=== PATIENT | female | born 1960 | race Caucasian/White ===

== ENCOUNTER 2020-03-20 17:25 | Observation (INO) | payer OTHER ==
--- NOTE | 2020-03-20 17:56 | PDOC ---
History of Present Illness - General Chief Complaint: Chest Pain Stated Complaint: CHEST PAIN Time Seen by Provider: 03/20/20 17:55 - History of Present Illness Initial Comments: 03/20/20 17:56 59 year old female with past medical hx of HTN and CVA with no residual deficits Past History - Medical History Allergies/Adverse Reactions: Allergies Allergy/AdvReac Type Severity Reaction Status Date / Time No Known Allergies Allergy Verified 03/20/20 17:47 Home Medications: Ambulatory Orders Acetaminophen W/ Codeine #3 [Tylenol # 3 -] 1 tab PO Q4H #10 tablet 12/31/13 Naproxen [Naprosyn -] 500 mg PO BID #14 tablet 09/02/14 Oxycodone HCl/Acetaminophen [Percocet 5-325 mg Tablet] 1 - 2 tab PO Q4H PRN #20 tablet 07/10/15 CVA: Yes COPD: No HTN: Yes - Reproductive History Is Patient Now?: No - Immunization History Immunization Up to Date: Yes - Psycho-Social/Smoking History Smoking Status: No Smoking History: Never smoked Have you smoked in the past 12 months: No Number of Cigarettes Smoked Daily: 0 Information on smoking cessation initiated: No - Substance Abuse Hx (Audit-C & DAST Scrn) How often the patient has a drink containing alcohol: Never Score: In Men: 4 or > Positive; In Women: 3 or > Positive: 0 Screen Result (Pos requires Nsg. Audit-10AR): Negative In the last yr the pt used illegal drug/Rx for NonMed reason: No Score: Yes response is considered Positive: 0 Screen Result (Positive result requires Nsg. DAST-10): Negative *Physical Exam - Vital Signs Last Vital Signs Temp Pulse Resp BP Pulse Ox 98.2 F 80 18 167/110 H 100 03/20/20 17:44 03/20/20 17:44 03/20/20 17:44 03/20/20 17:44 03/20/20 17:44 Discharge - Follow up/Referral Referrals: Zack Atkins [Primary Care Provider] - - Patient Discharge Instructions - Post Discharge Activity
--- NOTE | 2020-03-20 18:47 | PDOC ---
History of Present Illness - General Chief Complaint: Chest Pain Stated Complaint: CHEST PAIN Time Seen by Provider: 03/20/20 17:55 History Source: Patient Exam Limitations: Language Barrier (slovak) - History of Present Illness Initial Comments: 03/20/20 20:38 HPI: This is a 59 y/o female with a PMH of HTN (non-compliant with medications), CVA presenting to the ED because of 5-6 days of central non-radiating chest pressure that began while she was walking. She also has accompanying weakness, diaphoresis, nausea, and the pain is worse with activity. She reports that its worse with movement, but denies that its pleuritic. Denies fever, chills, cough, shortness of breath. ROS: GENERAL/CONSTITUTIONAL: No fever/chills. Yes weakness. HEAD, EYES, EARS, NOSE AND THROAT: No change in vision. No ear pain or discharge. No sore throat. CARDIOVASCULAR: Yes chest pain. No shortness of breath. RESPIRATORY: No cough, wheezing, or hemoptysis. GASTROINTESTINAL: Yes nausea. No vomiting, diarrhea or constipation. GENITOURINARY: No dysuria, frequency, or change in urination. MUSCULOSKELETAL: No joint or muscle swelling or pain. No neck or back pain. NEUROLOGIC: Yes headache. No vertigo, loss of consciousness, or change in stren gth/sensation. HEMATOLOGIC/LYMPHATIC: No anemia, easy bleeding, or history of blood clots. ALLERGIC/IMMUNOLOGIC: No hives or skin allergy. PMH: CVA, HTN Social Hx: Denied tobacco and etoh Meds: Denied Allergies: KNDA PE: GENERAL: Awake, alert, and fully oriented, in no acute distress. Romanian speaking. Laying in bed with daughter in room. HEAD: No signs of trauma EYES: PERRLA, EOMI, sclera anicteric, conjunctiva clear NECK: Normal ROM, supple, no lymphadenopathy, JVD, or masses LUNGS: Breath sounds equal, clear to auscultation bilaterally. No wheezes, and no crackles HEART: Regular rate and rhythm, normal S1 and S2, no murmurs, rubs or gallops ABDOMEN: Soft, nontender, normoactive bowel sounds. No guarding, no rebound. No masses EXTREMITIES: Normal range of motion, no edema. No clubbing or cyanosis. No cords, erythema, or tenderness NEUROLOGICAL: Cranial nerves II through XII grossly intact. Normal speech, normal gait MDM: This is a 59 y/o female with a PMH of HTN (non-compliant with medications), CVA presenting to the ED because of 5-6 days of central non-radiating chest pressure that began while she was walking. r/o ACS - past hx CVA - concern for ACS - CXR, EKG - CBC, CMP, Cardiac panel - ASA and reglan 03/20/20 21:04 - CXR clear - negative trop - tele obs 03/20/20 20:54 - blogged symphony 03/20/20 21:56 - Admitted Past History - Medical History Allergies/Adverse Reactions: Allergies Allergy/AdvReac Type Severity Reaction Status Date / Time No Known Allergies Allergy Verified 03/20/20 17:47 Home Medications: Ambulatory Orders NK [No Known Home Medication] 03/20/20 CVA: Yes COPD: No HTN: Yes - Reproductive History Is Patient Now?: No - Immunization History Immunization Up to Date: Yes - Psycho-Social/Smoking History Smoking Status: No Smoking History: Never smoked Have you smoked in the past 12 months: No Number of Cigarettes Smoked Daily: 0 Information on smoking cessation initiated: No - Substance Abuse Hx (Audit-C & DAST Scrn) How often the patient has a drink containing alcohol: Never Score: In Men: 4 or > Positive; In Women: 3 or > Positive: 0 Screen Result (Pos requires Nsg. Audit-10AR): Negative In the last yr the pt used illegal drug/Rx for NonMed reason: No Score: Yes response is considered Positive: 0 Screen Result (Positive result requires Nsg. DAST-10): Negative *Physical Exam - Vital Signs Last Vital Signs Temp Pulse Resp BP Pulse Ox 98.2 F 80 18 167/110 H 100 03/20/20 17:44 03/20/20 17:44 03/20/20 17:44 03/20/20 17:44 03/20/20 17:44 Heart Score/ECG Review - History History: Slightly suspicious - Electrocardiogram EKG: Non specific repolarization disturbance - Age Age: 45-65 - Risk Factors Risk Factors Heart Score: Yes Hx Hypercholesterolemia, Yes Hx Hypertension, Yes Hx Diabetes Based on the list above the patient has:: 1-2 risk factors - Troponin Troponin: </= normal limit - Score Heart Score - Total: 3 - ECG Intrepretation Comment:: 03/20/20 21:[address] elevations or T wave inversions ED Treatment Course - LABORATORY CBC & Chemistry Diagram: 03/21/20 06:00 03/21/20 06:00 Discharge - Discharge Information Problems reviewed: Yes Clinical Impression/Diagnosis: Chest pain Qualifiers: Chest pain type: unspecified Qualified Code(s): R07.9 - Chest pain, unspecified Headache Qualifiers: Headache type: unspecified Headache chronicity pattern: acute headache In tractability: not intractable Qualified Code(s): R51 - Headache Condition: Fair - Admission Yes - Follow up/Referral - Patient Discharge Instructions - Post Discharge Activity
[2020-03-20] MEDS ORDERED: ACETAMINOPHEN 1000 MG/100 ML VIAL (NON FORMULARY) IVPB ONE (18:51)
[2020-03-20] MEDS ORDERED: ASPIRIN 81 MG CHEWABLE TABLETS PO ONE (18:52)
[2020-03-20] MEDS ORDERED: ACETAMINOPHEN INJECTION 100 ML IVPB ONE (18:59)
[2020-03-20] MEDS ORDERED: ASPIRIN 81 MG CHEWABLE TABLETS ONE (18:59)
[2020-03-20 19:24] LABS: BASO % 1.1 % (0-2.0); EOS % 4.2 % (0-4.5); HEMATOCRIT 41.9 % (32.4-45.2); HEMOGLOBIN 13.8 GM/dL (10.7-15.3); LYMPH % 29.7 % (8-40); MCH 30.4 pg (25.7-33.7); MCHC 32.8 g/dl (32.0-36.0); MEAN CELL VOLUME 92.6 fl (80-96); MEAN PLT VOLUME 9.2 fl (7.5-11.1); MONO % 8.4 % (3.8-10.2); NEUT % 56.6 % (42.8-82.8); PLATELET COUNT 215 K/MM3 (134-434); RBC 4.52 M/mm3 (3.60-5.2); RDW 14.1 % (11.6-15.6)
[2020-03-20 19:35] LABS: INR 0.89 (0.83-1.09); PROTHROMBIN TIME (PATIENT) 10.5 SEC (9.7-13.0)
[2020-03-20 19:38] LABS: ACTIVATED PTT 27.1 SECONDS (25.2-36.5)
[2020-03-20 19:52] LABS: ALBUMIN 3.6 g/dl (3.4-5.0); ALK PHOS 87 U/L (45-117); ANION GAP 8 MMOL/L (8-16); BILIRUBIN,TOTAL 0.4 mg/dL (0.2-1); BLOOD UREA NITROGEN 20.1 mg/dL (7-18); CALCIUM 8.8 mg/dL (8.5-10.1); CHLORIDE 105 mmol/L (98-107); CO2 29 mmol/L (21-32); CREATININE 1.1 mg/dL (0.55-1.3); GLUCOSE,RANDOM 90 mg/dL (74-106); POTASSIUM 3.6 mmol/L (3.5-5.1); SGOT/AST 28 U/L (15-37); SGPT/ALT 54 U/L (13-61); SODIUM 142 mmol/L (136-145)
--- NOTE | 2020-03-20 19:54 | PDOC ---
Documentation entered by Dang Trinidad SCRIBE, acting as scribe for Mariah Hernandez DO. Mariah Hernandez DO: This documentation has been prepared by the Vivi rodriguez Sydney, SCRIBE, under my direction and personally reviewed by me in its entirety. I confirm that the documentation accurately reflects all work, treatment, procedures, and medical decision making performed by me. Attending Attestation - Resident Resident Name: Karla Bautista - ED Attending Attestation I have performed the following: I have examined & evaluated the patient, The case was reviewed & discussed with the resident, I agree w/resident's findings & plan, Exceptions are as noted - HPI HPI: 03/20/20 19:36 Patient is a 59 year old female with a significant past medical history of HTN, CVA (over 10 years ago) who presents to the ED with 5-6 days of left-sided chest pressure. As per patient, her constant 6/10 discomfort began while she was walking, fluctuates with intensity, and is exacerbated by walking and deep inspirations. Patient endorses associated nausea and sweating. Denies fever, chills, cough, diarrhea, or any urinary changes. Allergies: NKDA PCP: Dr. Atkins - Physicial Exam PE: 03/20/20 19:52 Gen: aaox3, nad, romansh speaking heent: MMM, EOMI neck: supple heart: +s1s2 reg lungs: cta b/l abd: soft, nt/nd +bs ext: no c/c/e - Medical Decision Making 03/20/20 19:52 a/p: 59yo female with cp with exertion, diaphoresis, nausea -concern for ACS -will send labs, ekg, cxr -no pleuritic cp, no cough, no f/c -pt also c/o a headache, will give reglan, asa -will monitor and reassess 03/20/20 19:55 trop neg labs reviewed and stable 03/20/20 20:47 microblog sent to [facility] for admission 03/20/20 22:27 resident discussed the case with [facility] who accepts pt to service Heart Score/ECG Review - ECG Intrepretation Comment:: 03/20/20 19:53 sinus at 76, pvc, l-rahman axis, poor r wave progression, q waveds inferior leads and anteiror leads which are age indeterminate, no acute st/t wave findings Discharge - Discharge Information Problems reviewed: Yes Clinical Impression/Diagnosis: Chest pain Qualifiers: Chest pain type: unspecified Qualified Code(s): R07.9 - Chest pain, unspecified Headache Qualifiers: Headache type: unspecified Headache chronicity pattern: acute headache Intractability: not intractable Qualified Code(s): R51 - Headache Condition: Fair - Admission Yes - Follow up/Referral - Patient Discharge Instructions - Post Discharge Activity
[2020-03-20] MEDS ORDERED: METOCLOPRAMIDE HCL INJECTION 10 MG/2 ML VIAL IVPUSH ONE (19:55)
[2020-03-20] MEDS ORDERED: LACTATED RINGERS SOLUTION 1000 ML INFUS.BAG IV ONE (19:55)
[2020-03-20] MEDS ORDERED: METOCLOPRAMIDE HCL INJECTION 10 MG/2 ML VIAL ONE (20:03)
--- NOTE | 2020-03-20 22:46 | HP ---
Admitting History and Physical - Primary Care Physician PCP: Zack Atkins - Admission Chief Complaint: Chest Pain, Weakness History of Present Illness: This is a 59 year old female with a significant past medical history of HTN, CVA (over 10 years ago). Who presents to the ED with 5-6 days of left-sided chest pressure. Patient is Icelandic speaking [employer]haali line used #[id number]. Patient reports increased pain with movement. She denies fall or trauma. Patient reports the chest pain has resolved. She denies fever, chills, cough, SOB, dizziness, palpitations, AP, N/V/D, constipation, dysuria. Patient denies sick contacts or recent travel. 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 Cardiovascular: Yes: HTN ((non-compliant)) Reproductive: Yes: Postmenopausal ...: No - Past Surgical History Additional Past Surgical History: childbirth - Smoking History Smoking history: Never smoked Have you smoked in the past 12 months: No Aproximately how many cigarettes per day: 0 - Alcohol/Substance Use Hx Alcohol Use: No Home Medications - Allergies Allergies/Adverse Reactions: Allergies Allergy/AdvReac Type Severity Reaction Status Date / Time No Known Allergies Allergy Verified 03/20/20 17:47 - Home Medications Home Medications: Ambulatory Orders NK [No Known Home Medication] 03/20/20 Family Medical History Family Hx Diabetes: Mother Review of Systems - Review of Systems Constitutional: reports: Diaphoresis Eyes: reports: No Symptoms HENT: reports: No Symptoms Neck: reports: No Symptoms Cardiovascular: reports: Chest Pain Respiratory: reports: No Symptoms Gastrointestinal: reports: Nausea Genitourinary: reports: No Symptoms Breasts: reports: No Symptoms Reported Musculoskeletal: reports: No Symptoms Integumentary: reports: No Symptoms Neurological: reports: Pre-Existing Deficit, Weakness Endocrine: reports: No Symptoms Hematology/Lymphatic: reports: No Symptoms Psychiatric: reports: No Symptoms Pain Intensity: 6 Physical Examination Vital Signs: Vital Signs Temperature 98.2 F 03/20/20 17:44 Pulse Rate 73 03/20/20 19:24 Respiratory Rate 18 03/20/20 19:24 Blood Pressure 162/99 03/20/20 19:24 O2 Sat by Pulse Oximetry (%) 100 03/20/20 19:24 Constitutional: Yes: No Distress, Calm, Thin Eyes: Yes: WNL, Conjunctiva Clear, EOM Intact, PERRL HENT: Yes: WNL, Atraumatic, Normocephalic Neck: Yes: WNL, Supple, Trachea Midline Cardiovascular: Yes: Regular Rate and Rhythm, S1, S2 Respiratory: Yes: WNL, Regular, CTA Bilaterally Gastrointestinal: Yes: WNL, Normal Bowel Sounds, Soft ...Rectal Exam: Yes: Deferred Renal/: Yes: WNL Breast(s): Yes: WNL Musculoskeletal: Yes: WNL Extremities: Yes: WNL Edema: No Peripheral Pulses WNL: Yes Integumentary: Yes: WNL ...Motor Strength: WNL Psychiatric: Yes: WNL, Alert, Oriented Labs: CBC, BMP 03/20/20 18:00 03/20/20 18:00 Imaging - Results Chest X-ray: Image Reviewed EKG: Image Reviewed Problem List - Problems (1) Chest pain Code(s): R07.9 - CHEST PAIN, UNSPECIFIED Qualifiers: Chest pain type: unspecified Qualified Code(s): R07.9 - Chest pain, unspecified (2) Weakness Code(s): R53.1 - WEAKNESS (3) HTN (hypertension) Code(s): I10 - ESSENTIAL (PRIMARY) HYPERTENSION (4) Encounter for screening laboratory testing for COVID-19 virus Code(s): Z11.59 - ENCOUNTER FOR SCREENING FOR OTHER VIRAL DISEASES Assessment/Plan 59 y/o female with a PMHx of HTN, CVA (10 yrs ago). Placed in Telemetry Observation for Chest Pain r/o ACS for further evaluaiton of their emergent condition. Plan: Continue cardiac monitoring Heart Score 4 Serial Enzymes Chest Xray- reviewed EKG- reviewed Appreciate Cardiology consult Lipid panel in am Asa Monitor CBC, CMP Tylenol prn Fall Precautions Low Risk for Covid- Covid PCR-pending, Isolation Precautions FEN- PO fluids as tolerated, replete lytes prn, Low Na Diet DVT ppx- OOB, SCDs, Consider AC if LOS> 48 hrs Dispo: Observation Visit type - Emergency Visit Emergency Visit: Yes ED Registration Date: 03/20/20 Care time: The patient presented to the Emergency Department on the above date and was hospitalized for further evaluation of their emergent condition. - New Patient This patient is new to me today: Yes Date on this admission: 03/20/20 - Critical Care Critical Care patient: No
[2020-03-21] MEDS ORDERED: ACETAMINOPHEN 325 MG TABLET (FP) PO PRN (06:38)
[2020-03-21 06:49] LABS: BASO % 1.1 % (0-2.0); EOS % 6.5 % (0-4.5); HEMATOCRIT 42.2 % (32.4-45.2); HEMOGLOBIN 13.8 GM/dL (10.7-15.3); LYMPH % 37.7 % (8-40); MCH 30.1 pg (25.7-33.7); MCHC 32.8 g/dl (32.0-36.0); MEAN CELL VOLUME 91.7 fl (80-96); MEAN PLT VOLUME 8.7 fl (7.5-11.1); MONO % 7.6 % (3.8-10.2); NEUT % 47.1 % (42.8-82.8); PLATELET COUNT 203 K/MM3 (134-434); RDW 13.6 % (11.6-15.6); WHITE BLOOD COUNT 5.1 K/mm3 (4.0-10.0)
[2020-03-21 08:25] LABS: ALBUMIN 3.2 g/dl (3.4-5.0); ALK PHOS 88 U/L (45-117); ANION GAP 9 MMOL/L (8-16); BILIRUBIN,TOTAL 0.6 mg/dL (0.2-1); BLOOD UREA NITROGEN 17.2 mg/dL (7-18); CALCIUM 8.8 mg/dL (8.5-10.1); CHLORIDE 107 mmol/L (98-107); CHOLESTEROL 218 mg/dL (50-200); CO2 27 mmol/L (21-32); CREATININE 0.8 mg/dL (0.55-1.3); GLUCOSE,RANDOM 93 mg/dL (74-106); HDL CHOLESTEROL 55 mg/dL (40-60); LDL CHOLESTEROL (ONLY SJRH) 135 mg/dL (5-100); POTASSIUM 3.9 mmol/L (3.5-5.1); SGOT/AST 35 U/L (15-37); SGPT/ALT 52 U/L (13-61); SODIUM 143 mmol/L (136-145); TOT PROT 6.4 g/dl (6.4-8.2); TRIGLYCERIDES 126 mg/dL (0-150)
[2020-03-21] MEDS ORDERED: ATORVASTATIN CA 20 MG TABLET (FP) PO ONE (08:45)
--- NOTE | 2020-03-21 08:45 | PN ---
Progress Note, Physician History of Present Illness: 59 year old female with a significant past medical history of HTN, CVA (over 10 years ago). Who presents to the ED with 5-6 days of left-sided chest pressure. Patient is Bengali speaking [employer] line used #[id number]. Patient reports increased pain with movement. She denies fall or trauma. Patient reports the chest pain has resolved. She denies fever, chills, cough, SOB, dizziness, palpitations, AP, N/V/D, constipation, dysuria. Patient denies sick contacts or recent travel. - Current Medication List Current Medications: Active Medications Acetaminophen (Tylenol -) 650 mg PO Q6H PRN PRN Reason: PAIN LEVEL 6-10 Aspirin (Asa -) 81 mg PO DAILY HECTOR - Objective Vital Signs: Vital Signs Temperature 98 F 03/21/20 06:58 Pulse Rate 68 03/21/20 06:58 Respiratory Rate 17 03/21/20 06:58 Blood Pressure 154/96 03/21/20 06:58 O2 Sat by Pulse Oximetry (%) 99 03/21/20 06:58 Cardiovascular: Yes: Regular Rate and Rhythm Respiratory: Yes: Regular, CTA Bilaterally Gastrointestinal: Yes: Normal Bowel Sounds, Soft Edema: No Neurological: Yes: Alert, Oriented Labs: CBC, BMP 03/21/20 06:00 03/21/20 06:00 INR, PTT INR 0.89 (0.83-1.09) 03/20/20 18:00 Problem List - Problems (1) Chest pain Assessment/Plan: Continue cardiac monitoring Serial Enzymes Chest Xray- cardiomegaly EKG- inf wall changes Cardiology consult Asa statin stress test Code(s): R07.9 - CHEST PAIN, UNSPECIFIED Qualifiers: Chest pain type: unspecified Qualified Code(s): R07.9 - Chest pain, unspecified (2) CVA (cerebral vascular accident) Assessment/Plan: old asa and statin Code(s): I63.9 - CEREBRAL INFARCTION, UNSPECIFIED (3) HTN (hypertension) Assessment/Plan: Monitor on home meds Code(s): I10 - ESSENTIAL (PRIMARY) HYPERTENSION
[2020-03-21] MEDS ORDERED: ASPIRIN 81 MG CHEWABLE TABLETS ONE (09:47)
[2020-03-21] MEDS ORDERED: ATORVASTATIN CA 20 MG TABLET (FP) ONE (09:47)
[2020-03-21] MEDS: ASPIRIN 81 MG CHEWABLE TABLETS PO SCH (09:57)
[2020-03-21] MEDS ORDERED: amLODIPine BESYLATE 5 MG TABLET (FP) PO ONE (11:44)
--- NOTE | 2020-03-21 11:50 | CON.CARD ---
Consult Consult Specialty:: Cardiology Reason for Consultation:: chest pain - History of Present Illness History of Present Illness: 59 F with reported ho CVA per EMR, pt denies- admitted with intermittent chest pain reported as pressure occurring at rest and without radiation. has good ambulatory capacity and no CP with exertion. No edema. ECG shows now Q in III and on CXR there is Cardiomegally. Currently chest pain free. 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 Cardio/Vascular: Yes: HTN ((non-compliant)) ...: No - Alcohol/Substance Use Hx Alcohol Use: No - Smoking History Smoking history: Never smoked Have you smoked in the past 12 months: No Aproximately how many cigarettes per day: 0 Home Medications - Allergies Allergies/Adverse Reactions: Allergies Allergy/AdvReac Type Severity Reaction Status Date / Time No Known Allergies Allergy Verified 03/20/20 17:47 - Home Medications Home Medications: Ambulatory Orders NK [No Known Home Medication] 03/20/20 Review of Systems - Review of Systems Constitutional: reports: No Symptoms Eyes: reports: No Symptoms HENT: reports: No Symptoms Neck: reports: No Symptoms Cardiovascular: reports: Chest Pain. denies: Edema, Palpitations, Shortness of Breath Respiratory: reports: No Symptoms Gastrointestinal: reports: No Symptoms Genitourinary: reports: No Symptoms Breasts: reports: No Symptoms Reported Musculoskeletal: reports: No Symptoms Vital Signs: Vital Signs Temperature 97.7 F 03/21/20 11:34 Pulse Rate 79 03/21/20 11:34 Respiratory Rate 18 03/21/20 11:34 Blood Pressure 147/102 H 03/21/20 11:34 O2 Sat by Pulse Oximetry (%) 99 03/21/20 11:34 Constitutional: Yes: Well Nourished, No Distress Eyes: Yes: Conjunctiva Clear HENT: Yes: Atraumatic, Normocephalic Neck: Yes: Supple, Trachea Midline Respiratory: Yes: Regular, CTA Bilaterally Gastrointestinal: Yes: Normal Bowel Sounds Cardiovascular: Yes: Regular Rate and Rhythm JVD: No Carotid Bruit: No PMI: Non-Displaced Heart Sounds: Yes: S1, S2 Murmur: No: Systolic Murmur, Diastolic Murmur Extremities: Yes: WNL Edema: No - Other Data Labs, Other Data: CBC, BMP 03/21/20 06:00 03/21/20 06:00 INR, PTT INR 0.89 (0.83-1.09) 03/20/20 18:00 Troponin, BNP 03/20/20 03/21/20 18:00 06:00 Troponin I < 0.02 < 0.02 Troponin, BNP 03/20/20 03/21/20 18:00 06:00 Troponin I < 0.02 < 0.02 NSR Q II, III Imaging - Results Chest X-ray: Report Reviewed Problem List - Problems (1) Chest pain Code(s): R07.9 - CHEST PAIN, UNSPECIFIED Qualifiers: Chest pain type: unspecified Qualified Code(s): R07.9 - Chest pain, unspecified Assessment/Plan Admitted wit hatypical chest pain with CMG on CXR and Abnormal ECG. NEL negative CP is less likely to be cardiac in nature however given abnormalities on CXR and ECG will advise echocardiogram prior to discharge. BP control
[2020-03-21] MEDS ORDERED: amLODIPine BESYLATE 5 MG TABLET (FP) ONE (12:04)
[2020-03-21 15:46] VITALS: BMI 23.1
[2020-03-22] MEDS ORDERED: REGADENOSON 0.4 MG/5 ML PRE-FILLED SYRINGE IVPUSH ONE ×2 (10:00→10:04)
[2020-03-22] MEDS ORDERED: amLODIPine BESYLATE 5 MG TABLET (FP) PO SCH (10:00)
--- NOTE | 2020-03-22 11:27 | ECHO ---
Version: 1 Name: OXANA SLAUGHTER Exam: Adult Echocardiogram Study Date: 03/22/2020, 9:18 AM Age: 59 Years MMode/2D Measurements & Calculations IVSd: 1.00 cm LVIDs: 2.24 cm LVIDd: 3.2 cm LVPWd: 1.13 cm LAV (MOD-bp): 49.0 ml ACS: 1.50 cm Ao root diam: 2.34 cm LVOT diam: 1.94 cm LA dimension: 3.4 cm Doppler Measurements & Calculations MV E max maxx: 42.4 cm/sec Med E/e': 9.7 MV A max maxx: 78.5 cm/sec Med Peak E' Maxx: 4.4 cm/sec MV E/A: 0.54 Lat E/e': 7.6 Lat Peak E' Maxx: 5.6 cm/sec MR max P.2 mmHg Ao max P.4 mmHg Ao V2 max: 105.1 cm/sec PI end-d maxx: 123.4 cm/sec TR max maxx: 223.9 cm/sec TR max P.1 mmHg Left Ventricle Left ventricular systolic function is normal. Ejection Fraction = 55-60%. The transmitral spectral D oppler flow pattern is suggestive of impaired LV relaxation. Right Ventricle The right ventricle is normal in size and function. Atria The left atrium is borderline dilated. Mitral Valve The mitral valve is normal in structure and function. There is no mitral valve stenosis. There is mi ld mitral regurgitation. Tricuspid Valve The tricuspid valve is normal in structure and function. There is mild tricuspid regurgitation. Aortic Valve There is mild aortic sclerosis.;. No hemodynamically significant valvular aortic stenosis. Pulmonic Valve The pulmonic valve is not well seen, but is grossly normal. There is no pulmonic valvular stenosis. Mild pulmonic valvular regurgitation. Great Vessels The aortic root is normal size. Pericardium/Pleura There is no pericardial effusion. Summary Statements Left ventricular systolic function is normal. The left atrium is borderline dilated. There is mild mitral regurgitation. There is mild tricuspid regurgitation. There is mild aortic sclerosis.; There is no pericardial effusion. MD Devine *Mila 03/22/2020, 11:26 AM Ordering Physician: Khalif Pina Referring Physician: KHALIF PINA Performed By: Padma Mcrae
--- NOTE | 2020-03-22 12:17 | DS ---
Physical Examination Vital Signs: Vital Signs Temperature 97.8 F 03/22/20 09:00 Pulse Rate 84 03/22/20 09:00 Respiratory Rate 20 03/22/20 09:00 Blood Pressure 157/107 H 03/22/20 09:00 O2 Sat by Pulse Oximetry (%) 95 03/22/20 09:00 Cardiovascular: Yes: Regular Rate and Rhythm Respiratory: Yes: Regular, CTA Bilaterally Gastrointestinal: Yes: Normal Bowel Sounds, Soft Labs: CBC, BMP 03/21/20 06:00 03/21/20 06:00 Discharge Summary Problems reviewed: Yes Reason For Visit: ACUTE CORONARY SYNDROME Current Active Problems CVA (cerebral vascular accident) (Acute) Chest pain (Acute) Encounter for screening laboratory testing for COVID-19 virus (Acute) HTN (hypertension) (Acute) Headache (Acute) Weakness (Acute) Hospital Course: - Problems (1) Chest pain Assessment/Plan: Continue cardiac monitoring Serial Enzymes Chest Xray- cardiomegaly EKG- inf wall changes Cardiology consult Asa statin Echo normal llv function stress test Code(s): R07.9 - CHEST PAIN, UNSPECIFIED Qualifiers: Chest pain type: unspecified Qualified Code(s): R07.9 - Chest pain, unspecified (2) CVA (cerebral vascular accident) Assessment/Plan: old asa and statin Code(s): I63.9 - CEREBRAL INFARCTION, UNSPECIFIED (3) HTN (hypertension) Assessment/Plan: Monitor on home meds Code(s): I10 - ESSENTIAL (PRIMARY) HYPERTENSION If stress test ok will dc home Condition: Fair - Instructions Referrals: Zack Atkins [Primary Care Provider] - - Home Medications Comprehensive Discharge Medication List: Ambulatory Orders Acetaminophen [Tylenol .Regular Strength -] 650 mg PO Q6H PRN tablet 03/22/20 Amlodipine Besylate [Norvasc -] 5 mg PO DAILY #30 tablet 03/22/20 Aspirin [ASA -] 81 mg PO DAILY tab.chew 03/22/20 Atorvastatin Ca [Lipitor] 20 mg PO HS #30 tablet 03/22/20
[2020-03-22] MEDS: ASPIRIN 81 MG CHEWABLE TABLETS PO SCH (12:29)
--- NOTE | 2020-03-22 12:31 | PN ---
Progress Note, Physician Chief Complaint: CP resolved Telem NSR History of Present Illness: 59 F with reported ho CVA per EMR, pt denies- admitted with intermittent chest pain reported as pressure occurring at rest and without radiation. has good ambulatory capacity and no CP with exertion. No edema. ECG shows now Q in III and on CXR there is Cardiomegally. Currently chest pain free. - Current Medication List Current Medications: Active Medications Acetaminophen (Tylenol -) 650 mg PO Q6H PRN PRN Reason: PAIN LEVEL 6-10 Amlodipine Besylate (Norvasc -) 5 mg PO DAILY [facility] Last Admin: 03/22/20 12:29 Dose: 5 mg Documented by: Aspirin (Asa -) 81 mg PO DAILY [facility] Last Admin: 03/22/20 12:29 Dose: 81 mg Documented by: Atorvastatin Calcium (Lipitor -) 20 mg PO HS [facility] - Objective Vital Signs: Vital Signs Temperature 97.8 F 03/22/20 09:00 Pulse Rate 84 03/22/20 09:00 Respiratory Rate 20 03/22/20 09:00 Blood Pressure 157/107 H 03/22/20 09:00 O2 Sat by Pulse Oximetry (%) 95 03/22/20 09:00 Constitutional: Yes: Well Nourished, No Distress Eyes: Yes: Conjunctiva Clear HENT: Yes: Atraumatic, Normocephalic Neck: Yes: Trachea Midline Cardiovascular: Yes: Regular Rate and Rhythm, Murmur Respiratory: Yes: Regular, CTA Bilaterally Gastrointestinal: Yes: Normal Bowel Sounds Labs: CBC, BMP 03/21/20 06:00 03/21/20 06:00 INR, PTT INR 0.89 (0.83-1.09) 03/20/20 18:00 Problem List - Problems (1) Chest pain Code(s): R07.9 - CHEST PAIN, UNSPECIFIED Qualifiers: Chest pain type: unspecified Qualified Code(s): R07.9 - Chest pain, unspecified Assessment/Plan Admitted wit hatypical chest pain with CMG on CXR and Abnormal ECG. Normal LV function. No valvular disease. Atypical chest pain. Pt has HTN. BP control Out patient FU will see as needed
[2020-03-22 15:15] VITALS: BP 140/70; PULSE 82; TEMP 98
[2020-03-22] MEDS ORDERED: ATORVASTATIN CA 20 MG TABLET (FP) PO SCH (22:00)
--- NOTE | 2020-03-25 10:57 | EKG ---
Test Reason : Blood Pressure : / mmHG Vent. 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
== END 2020-03-22 15:15 | disposition home or self-care (01) ==
LOC: JER 17:25 → INTOOBSV 20:43 → JERBED 20:43 → J4W 03-21 14:51
PROVIDERS: ADMIT Internal Medicine; ATTEND Family Medicine
PROC: 3E0337Z Introduction of Electrolytic and Water Balance Substance into Peripheral Vein, Percutaneous Approach (ICD-10-PCS; principal; 2020-03-20)
PROC: 3E033GC Introduction of Other Therapeutic Substance into Peripheral Vein, Percutaneous Approach (ICD-10-PCS; 2020-03-20)
PROC: 3E033NZ Introduction of Analgesics, Hypnotics, Sedatives into Peripheral Vein, Percutaneous Approach (ICD-10-PCS; 2020-03-20)
DX: R07.9 Chest pain, unspecified (principal); I63.9 Cerebral infarction, unspecified; R51 Headache; I10 Essential (primary) hypertension; Z11.59 Encounter for screening for other viral diseases; Z86.73 Personal history of transient ischemic attack (TIA), and cerebral infarction without residual deficits
CPT/HCPCS: 36415; 71046-TC-FY; 78452-TC; 80053; 80061; 82550; 83721; 84484; 85025; 85610; 85730; 93005; 93010; 93017; 93306-TC; 96361; 96374; 96375; 99285-25; A9502; G0378; J0131; J2785; U0003

== ENCOUNTER 2020-08-03 11:45 | Emergency (ER) | payer OTHER ==
[2020-08-03 12:04] VITALS: BP 151/95; PULSE 76; TEMP 98; BMI 21.6
== END 2020-08-03 13:21 | disposition home or self-care (01) ==
LOC: JERFT 11:45
PROC: 2W3CX1Z Immobilization of Right Lower Arm using Splint (ICD-10-PCS; principal; 2020-08-03)
DX: S52.531A Colles' fracture of right radius, initial encounter for closed fracture (principal); S52.611A Displaced fracture of right ulna styloid process, initial encounter for closed fracture
CPT/HCPCS: 29125; 73110-TC-RT-FY; 99283-25

== ENCOUNTER 2020-08-04 13:59 | Emergency (ER) | payer OTHER ==
[2020-08-04 14:06] VITALS: BP 137/86; PULSE 87; TEMP 97; BMI 22.4
[2020-08-04] MEDS ORDERED: KETOROLAC TROMETHAMINE 30 MG/1 ML VIAL IM ONE (14:39)
[2020-08-04] MEDS ORDERED: KETOROLAC TROMETHAMINE 30 MG/1 ML VIAL ONE (14:42)
== END 2020-08-04 15:20 | disposition home or self-care (01) ==
LOC: JERFT 13:59
PROC: 3E0233Z Introduction of Anti-inflammatory into Muscle, Percutaneous Approach (ICD-10-PCS; principal; 2020-08-04)
DX: R51.9 Headache, unspecified (principal); M54.5 Low back pain; W19.XXXA Unspecified fall, initial encounter
CPT/HCPCS: 72100-TC-FY; 96372; 99284-25

== ENCOUNTER 2020-08-19 08:22 | Day surgery (SDC) | payer OTHER ==
[2020-08-14 15:07] VITALS: BMI 21.9
[2020-08-19] MEDS ORDERED: MIDAZOLAM HCL 2 MG/2 ML SINGLE DOSE VIAL ONE (10:17)
[2020-08-19] MEDS ORDERED: ROPIVACAINE HCL 0.5% 30ML VIAL ONE (10:17)
[2020-08-19] MEDS ORDERED: oxyCODONE HCL 5 MG TABLET PO PRN (10:39)
[2020-08-19] MEDS ORDERED: ACETAMINOPHEN 325 MG TABLET (FP) PO PRN (10:39)
[2020-08-19] MEDS ORDERED: PROPOFOL 20 ML ONE ×8 (10:52→10:53)
[2020-08-19] MEDS ORDERED: TRANEXAMIC ACID 1000 MG/10 ML VIAL ONE (12:48)
[2020-08-19 14:54] VITALS: TEMP 97.5
[2020-08-19 16:02] VITALS: BP 140/86; PULSE 72
== END 2020-08-19 15:45 | disposition home or self-care (01) ==
LOC: FASU 08:22
PROVIDERS: ATTEND Orthopaedic Surgery
PROC: 0PSH04Z Reposition Right Radius with Internal Fixation Device, Open Approach (ICD-10-PCS; principal; 2020-08-19 11:15)
DX: S52.571A Other intraarticular fracture of lower end of right radius, initial encounter for closed fracture (principal); W18.30XA Fall on same level, unspecified, initial encounter; Y93.9 Activity, unspecified; Y92.9 Unspecified place or not applicable
CPT/HCPCS: 25608; C1713; 73110-TC-RT-FY; 94760

== ENCOUNTER 2021-06-19 22:28 | Emergency (ER) | payer OTHER ==
[2021-06-19 22:38] VITALS: TEMP 98.1; BMI 23.3
[2021-06-19] MEDS ORDERED: ACETAMINOPHEN 1000 MG/100 ML VIAL IVPB ONE (23:58)
[2021-06-19] MEDS ORDERED: LACTATED RINGERS SOLUTION 1000 ML INFUS.BAG IV ONE (23:58)
[2021-06-19] MEDS ORDERED: ONDANSETRON 4 MG/2 ML VIAL IVPUSH ONE (23:58)
[2021-06-19] MEDS ORDERED: LACTOBACILLUS ACIDOPHILUS 1 TABLET PO ONE (23:58)
[2021-06-20] MEDS ORDERED: METOCLOPRAMIDE HCL INJECTION 10 MG/2 ML VIAL IVPUSH ONE (00:08)
[2021-06-20] MEDS ORDERED: METOCLOPRAMIDE HCL INJECTION 10 MG/2 ML VIAL ONE (00:13)
[2021-06-20] MEDS ORDERED: ACETAMINOPHEN INJECTION 100 ML IVPB ONE (00:13)
[2021-06-20 00:46] LABS: EOS % 1.5 % (0-4.5); HEMATOCRIT 40.9 % (32.4-45.2); LYMPH % 13.4 % (8-40); MCH 30.6 pg (25.7-33.7); MCHC 34.3 g/dl (32.0-36.0); MEAN CELL VOLUME 89.2 fl (80-96); MEAN PLT VOLUME 8.2 fl (7.5-11.1); MONO % 7.5 % (3.8-10.2); NEUT % 76.6 % (42.8-82.8); PLATELET COUNT 199 10^3/uL (134-434); RBC 4.59 M/mm3 (3.60-5.2); RDW 13.5 % (11.6-15.6); WHITE BLOOD COUNT 6.2 K/mm3 (4.0-10.0)
[2021-06-20 01:11] LABS: ALBUMIN 3.3 g/dl (3.4-5.0); BLOOD UREA NITROGEN 14.5 mg/dL (7-18); CALCIUM 8.8 mg/dL (8.5-10.1)
[2021-06-20 01:13] LABS: CREATININE 0.9 mg/dL (0.55-1.3); MAGNESIUM 2.2 mg/dL (1.8-2.4)
[2021-06-20 01:15] LABS: BILIRUBIN,TOTAL 1.1 mg/dL (0.2-1); TOT PROT 6.9 g/dl (6.4-8.2)
[2021-06-20 02:41] VITALS: BP 134/91; PULSE 74
== END 2021-06-20 02:47 | disposition home or self-care (01) ==
LOC: JER 22:28
PROC: 3E0333Z Introduction of Anti-inflammatory into Peripheral Vein, Percutaneous Approach (ICD-10-PCS; principal; 2021-06-19)
PROC: 3E033GC Introduction of Other Therapeutic Substance into Peripheral Vein, Percutaneous Approach (ICD-10-PCS; 2021-06-19)
DX: R19.7 Diarrhea, unspecified (principal)
CPT/HCPCS: 36415; 80053; 83735; 85025; 96374; 99284-25; J0131

== ENCOUNTER 2021-09-08 09:19 | Day surgery (SDC) | payer OTHER ==
[2021-09-05 15:37] VITALS: BMI 18.8
[2021-09-08] MEDS ORDERED: ACETAMINOPHEN 325 MG TABLET (FP) PO PRN (11:42)
[2021-09-08] MEDS ORDERED: traMADol HCL 50 MG TABLET PO PRN (11:43)
[2021-09-08] MEDS ORDERED: SUCCINYLCHOLINE CHLORIDE 200 MG/10 ML SYRINGE ONE (12:35)
[2021-09-08] MEDS ORDERED: PROPOFOL 20 ML ONE ×2 (12:35)
[2021-09-08] MEDS ORDERED: BUPIVACAINE HCL/PF 0.25% (2.5MG/ML) 10 ML VIAL ONE (12:37)
[2021-09-08] MEDS ORDERED: ePHEDrine SULFATE 50 MG/1 ML AMPULE ONE (13:01)
[2021-09-08] MEDS ORDERED: TRANEXAMIC ACID 1000 MG/10 ML VIAL ONE (13:36)
[2021-09-08] MEDS ORDERED: ONDANSETRON 4 MG/2 ML VIAL IVPUSH PRN (14:22)
[2021-09-08] MEDS ORDERED: oxyCODONE HCL 5 MG TABLET PO PRN ×2 (14:22)
[2021-09-08] MEDS ORDERED: traMADol HCL 50 MG TABLET ONE (14:59)
[2021-09-08] MEDS ORDERED: ONDANSETRON 4 MG/2 ML VIAL ONE (14:59)
[2021-09-08 16:41] VITALS: BP 158/96; PULSE 89; TEMP 97.6
== END 2021-09-08 16:30 | disposition home or self-care (01) ==
LOC: FASU 09:19
PROVIDERS: ATTEND Orthopaedic Surgery
PROC: 0RPN04Z Removal of Internal Fixation Device from Right Wrist Joint, Open Approach (ICD-10-PCS; principal; 2021-09-08 13:06)
DX: Z47.2 Encounter for removal of internal fixation device (principal)
CPT/HCPCS: 73110-TC-RT-FY; 88300-TC; 94760

== ENCOUNTER 2022-02-19 11:37 | Emergency (ER) | payer OTHER ==
[2022-02-19 11:59] VITALS: BP 132/89; PULSE 86; TEMP 97.8; BMI 21.8
== END 2022-02-19 13:37 | disposition home or self-care (01) ==
LOC: JERFT 11:37
DX: M62.838 Other muscle spasm (principal)
CPT/HCPCS: 73030-TC-LT-FY; 99284-25

== ENCOUNTER 2023-01-01 17:47 | Emergency (ER) | payer OTHER ==
[2023-01-01 18:16] VITALS: BP 146/86; PULSE 94; RESP 18; TEMP 98; BMI 21.9
[2023-01-01] MEDS ORDERED: ACETAMINOPHEN 1000 MG/100 ML BAG IVPB ONE (18:39)
[2023-01-01] MEDS ORDERED: DEXAMETHASONE SOD PHOSPHATE 10 MG/1 ML VIAL IVPUSH ONE (18:42)
[2023-01-01] MEDS ORDERED: LIDOCAINE 5% TOPICAL PATCH TP ONE (18:42)
[2023-01-01] MEDS ORDERED: KETOROLAC TROMETHAMINE 15 MG/ML VIAL IVPUSH ONE (18:42)
[2023-01-01 19:14] LABS: BASO % 0.7 % (0-2.0); EOS % 2.1 % (0-4.5); HEMATOCRIT 40.4 % (32.4-45.2); HEMOGLOBIN 13.4 GM/dL (10.7-15.3); LYMPH % 14.3 % (8-40); MCH 29.7 pg (25.7-33.7); MCHC 33.2 g/dl (32.0-36.0); MEAN CELL VOLUME 89.5 fl (80-96); MEAN PLT VOLUME 8.2 fl (7.5-11.1); MONO % 7.5 % (3.8-10.2); NEUT % 75.4 % (42.8-82.8); PLATELET COUNT 214 10^3/uL (134-434); RBC 4.51 M/mm3 (3.60-5.2); RDW 13.6 % (11.6-15.6); WHITE BLOOD COUNT 10.4 K/mm3 (4.0-10.0)
[2023-01-01 19:21] LABS: INR 0.92 (0.83-1.09); PROTHROMBIN TIME (PATIENT) 10.7 SEC (9.7-13.0)
[2023-01-01 19:23] LABS: ACTIVATED PTT 29.5 SECONDS (25.2-36.5)
[2023-01-01 19:31] LABS: POTASSIUM 3.6 mmol/L (3.5-5.1)
[2023-01-01 19:33] LABS: CALCIUM 9.3 mg/dL (8.5-10.1)
[2023-01-01 19:34] LABS: ALBUMIN 3.4 g/dl (3.4-5.0); BLOOD UREA NITROGEN 15.3 mg/dL (7-18)
[2023-01-01 19:37] LABS: CREATININE 0.9 mg/dL (0.55-1.3)
[2023-01-01 19:39] LABS: BILIRUBIN,TOTAL 0.7 mg/dL (0.2-1)
[2023-01-01] MEDS ORDERED: DEXAMETHASONE SOD PHOSPHATE 10 MG/1 ML VIAL ONE (21:14)
[2023-01-01] MEDS ORDERED: KETOROLAC TROMETHAMINE 15 MG/ML VIAL ONE (21:15)
[2023-01-01] MEDS ORDERED: ACETAMINOPHEN INJECTION 100 ML IVPB ONE (21:15)
[2023-01-01] MEDS ORDERED: LIDOCAINE 5% TOPICAL PATCH ONE (21:15)
[2023-01-02] MEDS ORDERED: LIDOCAINE PATCH REMOVAL MC SCH (07:00)
== END 2023-01-01 21:25 | disposition home or self-care (01) ==
LOC: JER 17:47
DX: M25.512 Pain in left shoulder (principal); R07.9 Chest pain, unspecified
CPT/HCPCS: 36415; 71046-TC-FY; 73030-TC-LT-FY; 80053; 82550; 83690; 84484; 85025; 85610; 85730; 86850; 86900; 86901; 93005; 93010; 99285-25